=== PATIENT | female | born 1980 | race Caucasian/White ===

== ENCOUNTER → 2019-11-12 | Outpatient (CLI) | payer OTHER ==
--- NOTE | 2019-11-13 08:33 | RAD ---
EXAM: Chest,2 Views CLINICAL HISTORY: CHEST PAIN / DYSPNEA COMPARISON STUDY: April 21, 2014 TECHNICAL: Posteroanterior (PA) and lateral views of the chest were performed. FINDINGS: No consolidations, effusions, or edema. The heart size is not enlarged. No acute osseous abnormality. IMPRESSION: NORMAL CHEST XRAY. Electronically signed by: Rodrigue Moncada MD 11/13/2019 8:31 AM CDT
== END ==
LOC: YCFC.O 15:13
PROVIDERS: ATTEND Family Medicine
DX: Z03.818 Encounter for observation for suspected exposure to other biological agents ruled out (principal)

== ENCOUNTER → 2020-03-27 | Outpatient (CLI) | payer OTHER | LOC: YCFC.O 16:13 | PROVIDERS: ATTEND Nurse Practitioner Family | DX: Z20.828 Contact with and (suspected) exposure to other viral communicable diseases (principal) ==